=== PATIENT | male | born 1975 | race African-American/Black ===

== ENCOUNTER 2020-11-14 10:32 | Emergency (ER) | payer MEDICAID ==
[~2020-11-14] VITALS: Ht 175.3 cm; Wt 79.8 kg
--- NOTE | 2020-11-14 10:51 | NUR ---
WOKE UP THIS AM W/ HEADACHE, L SIDE CP R/T LOLYE. RAN OUT OF MEDS. TO ER BED 9, HOOKED TO MONITOR, VSS, CHANGED TO HOSP GOWN, WARM BLANKET PROVIDED, PATIENT AAO x 4, NAD NOTED. DR WEST AT BEDSIDE FOR EVAL.
[2020-11-14] MEDS ORDERED: LOSA100T3 PO (10:56)
[2020-11-14] MEDS ORDERED: VERA100C4 PO (10:56)
[2020-11-14] MEDS ORDERED: GABA800T11 PO (10:56)
[2020-11-14] MEDS ORDERED: QUET200T PO (10:56)
[2020-11-14] MEDS ORDERED: DIAZ5TAB PO (10:56)
[2020-11-14 11:05] VITALS: BP 148/99
[2020-11-14] MEDS ORDERED: VERA240T14 PO (11:05)
--- NOTE | 2020-11-14 11:05 | NUR ---
Patient discharged to home in stable condition. Written and verbal after care instructions given. Patient verbalizes understanding of instruction.
== END 2020-11-14 11:05 | disposition home or self-care (01) ==
LOC: ER 10:34
DX: I10 Essential (primary) hypertension (principal); R51.9 Headache, unspecified; F20.9 Schizophrenia, unspecified; F17.200 Nicotine dependence, unspecified, uncomplicated; Z88.8 Allergy status to other drugs, medicaments and biological substances; Z88.5 Allergy status to narcotic agent; Z79.899 Other long term (current) drug therapy

== ENCOUNTER 2020-12-11 21:17 | Emergency (ER) | payer MEDICAID, OTHER ==
[~2020-12-11] VITALS: Ht 175.3 cm; Wt 95.3 kg
[~2020-12-11 21:17] MED LIST: DIAZ5TAB PO; GABA800T11 PO; LOSA100T3 PO; QUET200T PO; VERA100C4 PO; VERA240T14 PO
--- NOTE | 2020-12-11 21:25 | NUR ---
BIBRA FOR C/O ABD PAIN, N/V. ADMITTED ON DRINKKING HEAVY ALCOHOL. PT TO BED 3 ER. REFUSED TO BE HOOKED UP TO VS MACHINE. RISK VS BENEFITS EXPLAINED, WILL CONT TO MONITOR
[2020-12-11] MEDS ORDERED: KETOROLAC TROMETHAMINE INJ 30 MG/ML VIAL IV ONE (21:30)
[2020-12-11] MEDS ORDERED: IV NS 0.9% 1,000 ML BAG IV ONE ×2 (21:30→23:30)
[2020-12-11] MEDS ORDERED: ONDANSETRON HCL/PF 4 MG/2 ML VIAL IVP ONE (21:30)
[2020-12-11] MEDS ORDERED: ONDANSETRON HCL/PF 4 MG/2 ML VIAL ONE (21:31)
[2020-12-11] MEDS ORDERED: KETOROLAC TROMETHAMINE INJ 30 MG/ML VIAL ONE (21:31)
[2020-12-11 21:52] LABS: BASOPHILS # (AUTO) 0.1 /CMM (0.0-0.2); BASOPHILS % (AUTO) 0.6 % (0.0-2.0); EOSINOPHILS % (AUTO) 2.3 % (0.0-6.0); HEMATOCRIT 44 % (39-51); HEMOGLOBIN 15.3 g/dL (13.5-17.5); LYMPHOCYTES # (AUTO) 1.6 /CMM (0.8-4.8); LYMPHOCYTES % (AUTO) 16.3 % (20.0-44.0); MEAN CORPUSCULAR HGB CONC 35 g/dl (31.0-36.0); MEAN CORPUSCULAR VOLUME 82 fL (80-96); MONOCYTES # (AUTO) 1.7 /CMM (0.1-1.30); MONOCYTES % (AUTO) 18.4 % (2.0-12.0); NEUTROPHILS # (AUTO) 5.9 /CMM (1.8-8.9); NEUTROPHILS % (AUTO) 62.4 % (43.0-81.0); PLATELET COUNT (AUTO) 341 /CMM (150-450); RED BLOOD CELL COUNT(AUTO) 5.42 MIL/uL (4.5-6.0); WHITE BLOOD COUNT (AUTO) 9.5 K/uL (4.3-11.0)
--- NOTE | 2020-12-11 22:00 | NUR ---
attempted to start iv line on pt. pt refused at this time. risk and benefits explained x3.
[2020-12-11 22:01] LABS: CALCIUM, SERUM 8.8 mg/dL (8.5-10.1); CREATININE 1.6 mg/dL (0.6-1.3); POTASSIUM 3.8 mmol/L (3.5-5.1)
[2020-12-11 22:06] LABS: ALBUMIN 3.8 g/dL (3.4-5.0); BILIRUBIN,DIRECT 0.3 mg/dL (0.0-0.2); BILIRUBIN,TOTAL 0.7 mg/dL (0.2-1.0)
[2020-12-11 22:32] LABS: BAND % (MANUAL) 2 % (0.0-5.0); EOSINOPHILS % (MANUAL) 3 % (0-4); LYMPHOCYTES % (MANUAL) 17 % (16-48); MONOCYTES % (MANUAL) 18 % (0-11.0); NEUTROPHILS % (MANUAL) 60 (42-76)
[2020-12-11 22:54] LABS: BILIRUBIN,URINE NEGATIVE (NEGATIVE); COLOR,URINE YELLOW (YELLOW); LEUKOCYTE ESTERASE ,URINE NEGATIVE (NEGATIVE); NITRITE, URINE NEGATIVE (NEGATIVE); PROTEIN,URINE 100 mg/dl (NEGATIVE); UGLUCOSE NEGATIVE (NEGATIVE)
[2020-12-11 23:06] LABS: BACTERIA,URINE Few /HPF (None Seen); MUCUS,URINE Many /LPF (None Seen); RBC,URINE 0-2 /HPF (0-2); SQUAMOUS EPITHELIAL CELL,UR Moderate /HPF (None Seen); URINE AMORPHOUS URATE Moderate /HPF (None Seen)
[2020-12-11] MEDS ORDERED: ONDA4TAB5 PO (23:33)
[2020-12-12] MEDS ORDERED: KETOROLAC TROMETHAMINE 15 MG/ML VIAL ONE (00:02)
[2020-12-12] MEDS ORDERED: ONDANSETRON HCL/PF 4 MG/2 ML VIAL ONE (00:02)
[2020-12-12] MEDS ORDERED: ONDANSETRON HCL/PF 4 MG/2 ML VIAL IV ONE (00:30)
[2020-12-12] MEDS ORDERED: KETOROLAC TROMETHAMINE INJ 30 MG/ML VIAL IV ONE (00:30)
--- NOTE | 2020-12-12 01:46 | NUR ---
Patient is resting comfortably in bed with eyes closed. Easily aroused. VSS
--- NOTE | 2020-12-12 02:02 | NUR ---
PT WAS PIACKED UP VIA TAXI IN STABLE CONDITION. PT ALERT, OX 4 AND AMBULATORY WITH STABLE GAITS ON DISCHARGE. IV removed. Catheter intact and site benign. Pressure and 4x4 applied to site. No bleeding noted.Patient discharged to home in stable condition. rx and Written and verbal after care instructions given. Patient verbalizes understanding of instruction.
[2020-12-12 02:04] VITALS: BP 122/66
== END 2020-12-12 02:04 | disposition home or self-care (01) ==
LOC: ER 21:19
DX: K29.20 Alcoholic gastritis without bleeding (principal); F10.10 Alcohol abuse, uncomplicated; N17.9 Acute kidney failure, unspecified; E86.0 Dehydration; I10 Essential (primary) hypertension; F20.0 Paranoid schizophrenia; F17.200 Nicotine dependence, unspecified, uncomplicated; Z88.8 Allergy status to other drugs, medicaments and biological substances; Z79.899 Other long term (current) drug therapy; Y90.9 Presence of alcohol in blood, level not specified
CPT/HCPCS: 36415; 80048; 80076; 81001; 83690; 85007; 85025; 87086; 96361; 96374; 96375; 96376; 99284; J1885 ×2; J2405 ×2; J7030 ×2

== ENCOUNTER 2021-02-02 16:14 | Emergency (ER) | payer OTHER ==
[~2021-02-02] VITALS: Ht 175.3 cm; Wt 83.9 kg
[~2021-02-02 16:14] MED LIST changes: +ONDA4TAB5 PO
--- NOTE | 2021-02-02 16:28 | NUR ---
CHASTITY CULP AT BEDSIDE. PATIENT WANTS TO FILE A POLICE REPORT, WILL CALL NON-EMERGENCY [employer].
[2021-02-02] MEDS ORDERED: ACET-2605 PO (18:02)
[2021-02-02] MEDS ORDERED: ACETAMINOPHEN ES 500 MG TABLET ONE (18:07)
[2021-02-02] MEDS: ACETAMINOPHEN 325 MG TABLET PO ONE (18:10)
[2021-02-02 18:19] VITALS: BP 124/83
--- NOTE | 2021-02-02 18:19 | NUR ---
Patient discharged to home in stable condition. Written and verbal after care instructions given. Patient verbalizes understanding of instruction.
== END 2021-02-02 18:23 | disposition home or self-care (01) ==
LOC: ER 16:18
DX: S09.8XXA Other specified injuries of head, initial encounter (principal); I10 Essential (primary) hypertension; F20.0 Paranoid schizophrenia; F17.200 Nicotine dependence, unspecified, uncomplicated; Z88.8 Allergy status to other drugs, medicaments and biological substances; Z79.899 Other long term (current) drug therapy; Y04.0XXA Assault by unarmed brawl or fight, initial encounter; Y93.89 Activity, other specified; Y92.89 Other specified places as the place of occurrence of the external cause; Y99.8 Other external cause status
CPT/HCPCS: 70450-TC; 72125-TC

== ENCOUNTER 2021-02-17 13:26 | Emergency (ER) | payer OTHER ==
[~2021-02-17] VITALS: Ht 175.3 cm; Wt 81.6 kg
[~2021-02-17 13:26] MED LIST changes: +ACET-2605 PO
[2021-02-17 13:36] VITALS: BP 136/87
--- NOTE | 2021-02-17 13:44 | NUR ---
C/O COUGH X 2 DAYS & ALSO C/O NIGHTSWEATS X 1 MONTH. PT AAOX4, VSS. RR EVEN & UNLABORED. DENIES CP, SOB, DIZZINESS N/V AT THIS TIME. AWAITING EVAL BY WILLIAN. WILL CONT TO MONITOR.
[2021-02-17] MEDS ORDERED: DIAZ5TAB4 PO (15:09)
[2021-02-17] MEDS ORDERED: AMOX-427 PO (15:12)
== END 2021-02-17 15:29 | disposition home or self-care (01) ==
LOC: ER 13:27
DX: J40 Bronchitis, not specified as acute or chronic (principal); I10 Essential (primary) hypertension; F17.200 Nicotine dependence, unspecified, uncomplicated; F20.0 Paranoid schizophrenia; Z88.8 Allergy status to other drugs, medicaments and biological substances; Z59.0 Homelessness; Z79.899 Other long term (current) drug therapy
CPT/HCPCS: 71045-TC

== ENCOUNTER 2021-03-24 15:07 | Emergency (ER) | payer OTHER ==
[~2021-03-24] VITALS: Ht 175.3 cm; Wt 83.9 kg
[~2021-03-24 15:07] MED LIST changes: +AMOX-427 PO; +DIAZ5TAB4 PO
[2021-03-24 15:35] VITALS: BP 180/100
[2021-03-24] MEDS ORDERED: GABA800T11 PO (15:46)
[2021-03-24] MEDS ORDERED: LOSA100T3 PO (15:46)
[2021-03-24] MEDS ORDERED: GUAI120013 PO (15:46)
[2021-03-24] MEDS ORDERED: VERA100C4 PO (15:46)
[2021-03-24] MEDS ORDERED: DIAZ5TAB4 PO (15:46)
== END 2021-03-24 15:58 | disposition home or self-care (01) ==
LOC: ER 15:11
DX: I10 Essential (primary) hypertension (principal); Z76.0 Encounter for issue of repeat prescription; F32.9 Major depressive disorder, single episode, unspecified; F41.9 Anxiety disorder, unspecified; F20.9 Schizophrenia, unspecified; Z88.8 Allergy status to other drugs, medicaments and biological substances; Z60.2 Problems related to living alone; Z79.899 Other long term (current) drug therapy

== ENCOUNTER 2021-09-27 09:06 | Emergency (ER) | payer MEDICAID, OTHER ==
[~2021-09-27] VITALS: Ht 175.3 cm; Wt 79.4 kg
[~2021-09-27 09:06] MED LIST changes: +GUAI120013 PO
--- NOTE | 2021-09-27 09:17 | NUR ---
[place] w/ suicidal ideation w/ plan to jump infront of a train. denies HI. pt is verbally responsive and cooperative. requesting for voluntary psych admission to [facility]. stable vital sign. awaiting md leon.
--- NOTE | 2021-09-27 09:48 | NUR ---
dr uriarte at bedside for eval.
--- NOTE | 2021-09-27 09:48 | NUR ---
dr uriarte at bedside for blood draw.
--- NOTE | 2021-09-27 10:10 | NUR ---
recyclable materials distributor at bedside for blood draw.
--- NOTE | 2021-09-27 10:10 | NUR ---
Beth frost in [facility] - 09/27/21 at 1702 by TOMMY roving tester laboratory at bedside for aliceal.
[2021-09-27 10:35] LABS: BASOPHILS # (AUTO) 0.1 K/uL (0.0-0.2); BASOPHILS % (AUTO) 0.8 % (0.0-2.0); EOSINOPHILS % (AUTO) 0.5 % (0.0-6.0); HEMATOCRIT 44 % (39-51); HEMOGLOBIN 15.2 g/dL (13.5-17.5); LYMPHOCYTES # (AUTO) 2.1 K/uL (0.8-4.8); LYMPHOCYTES % (AUTO) 21.6 % (20.0-44.0); MEAN CORPUSCULAR HGB CONC 35 g/dl (31.0-36.0); MEAN CORPUSCULAR VOLUME 83 fL (80-96); MONOCYTES # (AUTO) 1.3 K/uL (0.1-1.30); MONOCYTES % (AUTO) 13.1 % (2.0-12.0); NEUTROPHILS # (AUTO) 6.3 K/uL (1.8-8.9); PLATELET COUNT (AUTO) 370 K/uL (150-450); RED BLOOD CELL COUNT(AUTO) 5.28 MIL/uL (4.5-6.0); WHITE BLOOD COUNT (AUTO) 9.9 K/uL (4.3-11.0)
[2021-09-27 10:47] LABS: CALCIUM, SERUM 8.9 mg/dL (8.5-10.1); CARBON DIOXIDE 28 mmol/L (21-32); CHLORIDE 101 mmol/L (98-107); CREATININE 0.8 mg/dL (0.6-1.3); GLUCOSE 114 mg/dL (74-106); SODIUM SERUM 137 mmol/L (136-145); UREA NITROGEN, BLOOD 18 mg/dL (7-18)
[2021-09-27 11:01] LABS: ALANINE AMINOTRANSFERASE 70 U/L (12-78); ALBUMIN 3.8 g/dL (3.4-5.0); ALCOHOL, BLOOD < 3 mg/dL (0-0); ALKALINE PHOSPHATASE 101 U/L (46-116); ASPARTATE AMINOTRANSFERASE 65 U/L (15-37); BILIRUBIN,DIRECT 0.4 mg/dL (0.0-0.2); BILIRUBIN,TOTAL 0.9 mg/dL (0.2-1.0)
[2021-09-27 11:05] LABS: ACETAMINOPHEN 0 ug/ml (10-30)
--- NOTE | 2021-09-27 11:15 | NUR ---
swabbed for covid. sent to lab.
[2021-09-27 11:18] LABS: BILIRUBIN,URINE SMALL (NEGATIVE); COLOR,URINE DARK YELLOW (YELLOW); LEUKOCYTE ESTERASE ,URINE NEGATIVE (NEGATIVE); NITRITE, URINE NEGATIVE (NEGATIVE); PROTEIN,URINE TRACE mg/dl (NEGATIVE); UGLUCOSE NEGATIVE (NEGATIVE)
--- NOTE | 2021-09-27 12:06 | NUR ---
SS Consult: SS Consult requested for SI, homelessness & drug abuse. The pt. is a 46-year-old Black male patient who presented to the ED with complaints of SI with plan to "run [place]". Upon SS consult, the pt. is Alert & Oriented x 4 and makes piercing eye contact. The pt. appears well groomed, with clear speech. Pt. has depressed mood and affect. SW provided emotional support and offered voluntary psych Tx and pt. is agreeable. SW explored pt.'s living situation. Per the pt., he has been experiencing homelessness "recently" and has been sleeping in the street. Pt. states he has no support system. SW explored pt.'s drug & ETOH use. Pt. states he will use any drugs he can get his hands on when he needs to cope. SW explored pt.'s mental health Hx. Per the pt. he has been diagnosed with "Borderlines Personality Disorder & Schizophrenia" in the past and prescribed Seroquel, remeron & Ativan but has not taken it lately. Pt. denies current HI. Pt. states he received food stamps, and SSDI. Per pt. he is ambulatory & independent with all his ADL's. Plan: Pt. will referred [facility] [[facility] [place] [address] FAX:[phone]] for voluntary psychiatric treatment. Pt. signed homeless waiver & it was placed in the pt.'s chart. [facility] provided homeless resources to pt. and he accepted them. Year-round shelters: [facility] [place] [address] [place] [address] ; [facility] [place] [address] [place] [address]; [facility] [id number] [facility] [address] Winter Shelters: SPA 2 | [facility] Annalee: Kimmie payne [facility] [place] Address: Confidential (call for location ) Population Served: Coed # of Beds: 57 SPA 4 | [facility] Provider: [facility] Address: [address] [place] [address], [address] # of Beds: 49 Population Served: Coed SPA 6 | [facility] Provider: [facility] Address: [address] [place], [address] # of Beds: 49 Population Served: Coed [facility] Provider: Rigo MADDEN Address: [address] [facility] [address] # of Beds: 20 Population Served: Women JAGJIT Facility Provider: [facility] Last Address: [address] [facility] [address] # of Beds: 30 Population Served: Women SPA 8 | [facility] Provider: Lauren payne Dipti Address: [address] [facility], [facility] [address] # of Beds: 65 Population Served: Coed Hygiene: [facility]: [address] [facility] ; [facility] [address] [facility] ; [facility] [address] [facility] . Food Resources: [place] [facility] at [facility]- [address] [facility]; Meet Each Need with Dignity ([facility]) [address] [facility]; [facility] Food Pantry [address]; [facility] [address] [facility]. Mental Health resources provided: [facility] [address] [place] [address] ; [facility] [address] [facility] [address], [place] [address] ; Malou Gong [facility] [address] [place] [address] ; [facility] [address] [place] [address] Healthcare Clinics: [facility] [address] [facility], [address] [place]. [place] ; [facility] [address] [facility] [address] [place] [address]; [facility] [address] [facility] [place] [address] [phone] Counseling--Outpatient [facility] [address] [facility], [place] [address] (Specializes in in-depth psychotherapy for emotional distress: anxiety, depression, interpersonal conflicts, life transitions, childhood abuse) [facility] [address] [place] [address] (Assist with solving problem marital difficulties, separation & divorce, aging parents, & grief, chronic & terminal illness) [facility] [address] [place] [address] (Deal with loss & grief, anxiety, marital difficulties) Homebound/Mental Health Services [address] [facility], [address] [place] [address] (Provide in-home mental services to people who are incapable of leaving their homes) [facility] Needs of the Elderly Senior Service/Resource Center [address] [facility] [place] [address] [facility] [address] [facility] [place] [address] PSYCHIATRIC OUTPATIENT SERVICES [facility] Partial Hospitalization and Intensive Outpatient Program (Managed Care and [place] Only)[address] [facility] [phone] [facility] Partial Hospitalization and Outpatient Zvkpoas17924 [facility] [address] [place], [place] [phone] [facility] Maud Pip[address] [facility] [address] [place], [place] [phone] [facility] Partial Hospitalization and Outpatient Mamcdtk17523 [facility] [place], [phone] Substance Abuse resources provided included: [facility] Substance Abuse Self-Helpline ([facility]) ; CRI -HELP [address] [facility]. [place] [address] ; [facility] [address] [facility] [address] ; [facility] [address] [facility] [address] ; [facility] [address] [phone] ; [facility] [address] Payam Plasencia [facility] [address] ; [facility] 9[address] [facility], [facility] [id number] ; [facility] Substance Abuse Helpline([facility] ; [facility] Family Counseling ; [facility] [place]; [facility] [place]; [facility] Payam Plasencia; [place] [facility] [place]; [place] Carpio; [facility]'s Maud[employer] [place]; Alcoholics Anonymous -SFV; Kz-Ispk-Tizvxtw ; Marijuana Anonymous -SFV; Narcotics Anonymous www.na.org;
[2021-09-27 12:15] VITALS: BP 152/87
[2021-09-27 15:06] LABS: BACTERIA,URINE FEW /HPF (None Seen); RBC,URINE 0-2 /HPF (0-2); WBC,URINE 0-3 /HPF (0-3)
[2021-09-27 15:07] LABS: URINE AMORPHOUS URATE Few /HPF (None Seen)
--- NOTE | 2021-09-27 18:26 | NUR ---
RECEIVED A CALL FROM ANSLEY ESTEVEZ. PT ACCEPTED AT [facility] UNDER THE CARE OF DR. ESTRADA. [phone] ASK FOR UNIT 1.
--- NOTE | 2021-09-27 19:15 | NUR ---
[facility] condition.
== END 2021-09-27 19:17 ==
LOC: ER 09:16
DX: R45.851 Suicidal ideations (principal); F32.9 Major depressive disorder, single episode, unspecified; F14.10 Cocaine abuse, uncomplicated; F12.10 Cannabis abuse, uncomplicated; Z20.822 Contact with and (suspected) exposure to COVID-19; I10 Essential (primary) hypertension; I48.91 Unspecified atrial fibrillation; F41.9 Anxiety disorder, unspecified; F20.9 Schizophrenia, unspecified; Z88.8 Allergy status to other drugs, medicaments and biological substances; Z60.2 Problems related to living alone; Z79.899 Other long term (current) drug therapy
CPT/HCPCS: 36415; 80048-TC; 80076-TC; 81001; 85025-TC; C9803; G0480

== ENCOUNTER 2022-02-22 11:03 | Emergency (ER) | payer MEDICAID ==
[~2022-02-22] VITALS: Ht 175.3 cm; Wt 68.0 kg
--- NOTE | 2022-02-22 12:03 | NUR ---
SECURITY IS CALLED AND WANDING DONE.
--- NOTE | 2022-02-22 12:13 | NUR ---
BIBS FOR FOR HAVING SI WITH PLAN " TO OVERDOSE ON ANY PILL". THE PATIENT REQUESTING VOL ADMISSION TO [facility]. THE PATIENT IS ALERT AND ORIENTED X4. IN ROOM AIR AND DENIES SOB. RESPIRATION REGULAR AND UNLABORED. WILL CONTINUE TO MONITOR THE PATIENT.
[2022-02-22 12:50] LABS: BASOPHILS # (AUTO) 0.1 K/uL (0.0-0.2); EOSINOPHILS % (AUTO) 1.9 % (0.0-6.0); HEMATOCRIT 45 % (39-51); HEMOGLOBIN 15.7 g/dL (13.5-17.5); LYMPHOCYTES # (AUTO) 2.2 K/uL (0.8-4.8); LYMPHOCYTES % (AUTO) 33.5 % (20.0-44.0); MEAN CORPUSCULAR HGB CONC 35 g/dl (31.0-36.0); MEAN CORPUSCULAR VOLUME 82 fL (80-96); MONOCYTES # (AUTO) 0.9 K/uL (0.1-1.30); MONOCYTES % (AUTO) 14.3 % (2.0-12.0); NEUTROPHILS # (AUTO) 3.3 K/uL (1.8-8.9); NEUTROPHILS % (AUTO) 49.3 % (43.0-81.0); PLATELET COUNT (AUTO) 348 K/uL (150-450); RED BLOOD CELL COUNT(AUTO) 5.47 MIL/uL (4.5-6.0); WHITE BLOOD COUNT (AUTO) 6.6 K/uL (4.3-11.0)
[2022-02-22 12:57] LABS: BILIRUBIN,URINE NEGATIVE (NEGATIVE); COLOR,URINE YELLOW (YELLOW); LEUKOCYTE ESTERASE ,URINE NEGATIVE (NEGATIVE); NITRITE, URINE NEGATIVE (NEGATIVE); PROTEIN,URINE TRACE mg/dl (NEGATIVE); UGLUCOSE NEGATIVE (NEGATIVE)
[2022-02-22 13:03] LABS: CALCIUM, SERUM 9.3 mg/dL (8.5-10.1); CREATININE 0.7 mg/dL (0.6-1.3); POTASSIUM 3.8 mmol/L (3.5-5.1)
[2022-02-22 13:05] LABS: ALBUMIN 4.1 g/dL (3.4-5.0); BILIRUBIN,DIRECT 0.3 mg/dL (0.0-0.2); BILIRUBIN,TOTAL 0.9 mg/dL (0.2-1.0); TOTAL PROTEIN, SERUM 8.5 g/dL (6.4-8.2)
[2022-02-22 13:16] LABS: BACTERIA,URINE Rare /HPF (None Seen); MUCUS,URINE Few /LPF (None Seen); RBC,URINE 0-2 /HPF (0-2); SQUAMOUS EPITHELIAL CELL,UR Few /HPF (None Seen)
--- NOTE | 2022-02-22 16:32 | NUR ---
CLINICALS FAXED TO [facility].
--- NOTE | 2022-02-22 18:01 | NUR ---
TRANSFER INFO: ACCEPTED TO [facility] BY DR HERNÁNDEZ RN FOR REPORT [phone]
--- NOTE | 2022-02-22 18:05 | NUR ---
[facility] ETA 45 MINUTES
[2022-02-22] MEDS ORDERED: LORAZEPAM 1 MG TABLET ONE (18:09)
[2022-02-22] MEDS ORDERED: LORAZEPAM 1 MG TABLET PO ONE (18:30)
--- NOTE | 2022-02-22 18:33 | NUR ---
PER THE [facility] CHARGE NURSE CALL BACK LATER FOR REPORT. WILL FOLLOW UP.
--- NOTE | 2022-02-22 19:01 | NUR ---
REPORT GIVEN TO NURSE LOMAS FROM [facility]
--- NOTE | 2022-02-22 19:02 | NUR ---
REPORT GIVEN TO AMBULANCE STAFF
--- NOTE | 2022-02-22 19:19 | NUR ---
DR ESPANA MADE AWARE OF BP 160/112, RECEIVED ORDER OF COZAAR 100 MG PO ONCE AND VERAPAMIL 240 MG PO ONCE. THE ORDERS ARE READ BACK, VERIFIED. NOTED AND CARRIED OUT.
[2022-02-22] MEDS ORDERED: LOSARTAN POTASSIUM 50 MG TABLET ONE (19:20)
[2022-02-22] MEDS ORDERED: VERAPAMIL HCL 80 MG TABLET ONE (19:20)
[2022-02-22] MEDS ORDERED: LOSARTAN POTASSIUM 25 MG TABLET PO ONE (19:30)
[2022-02-22] MEDS ORDERED: VERAPAMIL HCL 80 MG TABLET PO ONE (19:30)
[2022-02-22] MEDS ORDERED: CLONIDINE HCL 0.1 MG TABLET ONE (22:27)
[2022-02-22] MEDS ORDERED: CLONIDINE HCL 0.1 MG TABLET PO ONE (22:30)
--- NOTE | 2022-02-22 23:36 | NUR ---
[facility] CALLED FOR BLS TO [facility] PER DAVE-15-20 MIN
--- NOTE | 2022-02-23 00:08 | NUR ---
REPORT GIVEN TO [facility] FOR TRANSPORT
[2022-02-23 00:42] VITALS: BP 148/98
== END 2022-02-23 00:43 ==
LOC: ER 11:45
DX: R45.851 Suicidal ideations (principal); I10 Essential (primary) hypertension; F20.0 Paranoid schizophrenia; Z88.8 Allergy status to other drugs, medicaments and biological substances; Z20.822 Contact with and (suspected) exposure to COVID-19
CPT/HCPCS: 36415; 80048; 80076; 80143; 80307; 80320; 81001; 85025; 87426; 99285; C9803; G0480

== ENCOUNTER 2022-09-06 02:57 | Emergency (ER) | payer MEDICAID, OTHER ==
[~2022-09-06] VITALS: Ht 175.3 cm; Wt 86.2 kg
[2022-09-06] MEDS ORDERED: hydrALAZINE HCL IV 20 MG VIAL ONE (03:36)
--- NOTE | 2022-09-06 03:38 | NUR ---
[employer] FOR MEDICAL CLEARANCE FOR BOOKING. REPORTTED HIGH BP IN THE 180S SYSTOLIC. PT AWAKE AND ALERT X4 BREATHING UNLABORED PLACED ON MONITOR AND NOTED HYPERTENSIVE. DENIES ANY PAIN/SOB.
--- NOTE | 2022-09-06 03:48 | NUR ---
20g iv line started at . blood drawn and sent to lab
[2022-09-06] MEDS ORDERED: hydrALAZINE HCL IV 20 MG VIAL IV ONE (04:00)
[2022-09-06 04:02] LABS: BASOPHILS % (AUTO) 0.7 % (0.0-2.0); EOSINOPHILS % (AUTO) 4.9 % (0.0-6.0); HEMATOCRIT 45 % (39-51); HEMOGLOBIN 15.7 g/dL (13.5-17.5); LYMPHOCYTES # (AUTO) 2.2 K/uL (0.8-4.8); MEAN CORPUSCULAR HGB CONC 35 g/dl (31.0-36.0); MEAN CORPUSCULAR VOLUME 82 fL (80-96); MONOCYTES # (AUTO) 0.9 K/uL (0.1-1.30); MONOCYTES % (AUTO) 13.4 % (2.0-12.0); NEUTROPHILS # (AUTO) 3.3 K/uL (1.8-8.9); PLATELET COUNT (AUTO) 284 K/uL (150-450); RED BLOOD CELL COUNT(AUTO) 5.51 MIL/uL (4.5-6.0); WHITE BLOOD COUNT (AUTO) 6.8 K/uL (4.3-11.0)
[2022-09-06 04:15] LABS: ALANINE AMINOTRANSFERASE 61 U/L (12-78); ALBUMIN 3.4 g/dL (3.4-5.0); ALKALINE PHOSPHATASE 111 U/L (46-116); ASPARTATE AMINOTRANSFERASE 52 U/L (15-37); BILIRUBIN,DIRECT 0.3 mg/dL (0.0-0.2); BILIRUBIN,TOTAL 0.7 mg/dL (0.2-1.0); CALCIUM, SERUM 9.4 mg/dL (8.5-10.1); CARBON DIOXIDE 31 mmol/L (21-32); CHLORIDE 99 mmol/L (98-107); GLUCOSE 121 mg/dL (74-106); POTASSIUM 3.7 mmol/L (3.5-5.1); SODIUM SERUM 135 mmol/L (136-145); TOTAL PROTEIN, SERUM 7.3 g/dL (6.4-8.2); UREA NITROGEN, BLOOD 17 mg/dL (7-18)
--- NOTE | 2022-09-06 04:23 | NUR ---
urine sent to lab
[2022-09-06 04:29] LABS: BILIRUBIN,URINE NEGATIVE (NEGATIVE); COLOR,URINE YELLOW (YELLOW); LEUKOCYTE ESTERASE ,URINE NEGATIVE (NEGATIVE); NITRITE, URINE NEGATIVE (NEGATIVE); PROTEIN,URINE TRACE mg/dl (NEGATIVE); UGLUCOSE NEGATIVE (NEGATIVE)
[2022-09-06 04:50] LABS: BACTERIA,URINE Rare /HPF (None Seen); RBC,URINE NONE SEEN /HPF (0-2); SQUAMOUS EPITHELIAL CELL,UR Few /HPF (None Seen); WBC,URINE 0-2 /HPF (0-3)
--- NOTE | 2022-09-06 09:16 | NUR ---
IV removed. Catheter intact and site benign. Pressure and 4x4 applied to site. No bleeding noted.
--- NOTE | 2022-09-06 09:21 | NUR ---
PT MEDICALLY-CLEARED FOR BOOKING. DISCHARGED TO [facility] IN STABLE CONDITION, ACCOMPANIED BY 2 Charito. DISCHARGE PAPERS PROVIDED.
[2022-09-06 09:22] VITALS: BP 142/80
== END 2022-09-06 09:23 ==
LOC: ER 03:00
DX: I16.0 Hypertensive urgency (principal); I10 Essential (primary) hypertension; I48.91 Unspecified atrial fibrillation; F20.9 Schizophrenia, unspecified; F17.200 Nicotine dependence, unspecified, uncomplicated; Z88.8 Allergy status to other drugs, medicaments and biological substances; Z60.2 Problems related to living alone; Z79.899 Other long term (current) drug therapy
CPT/HCPCS: 99285; 96374; 93005; 85025; 80048; 80076; 81001; 36415; 84484 ×2; 85730; J0360

== ENCOUNTER 2023-09-28 16:08 | Emergency (ER) | payer MEDICAID, OTHER ==
[~2023-09-28] VITALS: Ht 188 cm; Wt 93.9 kg
[2023-09-28 16:17] VITALS: TEMP 98
[2023-09-28] MEDS: IV NS 0.9% 1,000 ML BAG IV ONE (16:27)
[2023-09-28] MEDS ORDERED: MORPHINE SULFATE INJ 4 MG/ML DISP.SYRIN ONE (16:29)
[2023-09-28] MEDS: MORPHINE SULFATE INJ 2 MG/ML DISP.SYRIN IV ONE (16:31)
[2023-09-28 16:41] LABS: BASOPHILS # (AUTO) 0.1 K/uL (0.0-0.2); BASOPHILS % (AUTO) 0.8 % (0.0-2.0); EOSINOPHILS # (AUTO) 0.2 K/uL (0.0-0.7); EOSINOPHILS % (AUTO) 2.1 % (0.0-6.0); HEMATOCRIT 38 % (39-51); HEMOGLOBIN 13.5 g/dL (13.5-17.5); LYMPHOCYTES # (AUTO) 2.2 K/uL (0.8-4.8); MEAN CORPUSCULAR HEMOGLOBIN 28 PG (26.0-33.0); MEAN CORPUSCULAR HGB CONC 36 g/dl (31.0-36.0); MEAN CORPUSCULAR VOLUME 78 fL (80-96); MONOCYTES # (AUTO) 1.2 K/uL (0.1-1.30); MONOCYTES % (AUTO) 11.3 % (2.0-12.0); NEUTROPHILS # (AUTO) 6.9 K/uL (1.8-8.9); NEUTROPHILS % (AUTO) 64.8 % (43.0-81.0); PLATELET COUNT (AUTO) 291 K/uL (150-450); RED BLOOD CELL COUNT(AUTO) 4.89 MIL/uL (4.5-6.0); RED CELL DISTRIBUTION WIDTH 14.4 % (11.5-15.0); WHITE BLOOD COUNT (AUTO) 10.7 K/uL (4.3-11.0)
[2023-09-28 17:20] LABS: CALCIUM, SERUM 8.2 mg/dL (8.5-10.1); CARBON DIOXIDE 26 mmol/L (21-32); CHLORIDE 102 mmol/L (98-107); CREATININE 0.9 mg/dL (0.6-1.3); GLUCOSE 142 mg/dL (74-106); NT-PRO BNP 47 pg/mL (0-125); POTASSIUM 3.6 mmol/L (3.5-5.1); SODIUM SERUM 138 mmol/L (136-145); UREA NITROGEN, BLOOD 12 mg/dL (7-18)
[2023-09-28 18:17] LABS: AMPHETAMINE, URINE NEGATIVE (NEGATIVE); BARBITURATE, URINE NEGATIVE (NEGATIVE); BENZODIAZEPINE, URINE NEGATIVE (NEGATIVE); CANNABINOID, URINE NEGATIVE (NEGATIVE); PHENCYCLIDINE SCREEN,URINE NEGATIVE (NEGATIVE)
[2023-09-28 18:26] LABS: COCCAINE, URINE POSITIVE (NEGATIVE); OPIATE, URINE POSITIVE (NEGATIVE)
[2023-09-28 20:44] LABS: ACETAMINOPHEN <10 ug/ml (10-30); SALICYLATE 0.3 mg/dL (2.8-20.0)
[2023-09-28] MEDS ORDERED: ONDANSETRON 4 MG TAB.RAPDIS ONE (21:06)
[2023-09-28] MEDS: ONDANSETRON 4 MG TAB.RAPDIS SL ONE (21:07)
[2023-09-29 00:42] LABS: APPEARANCE,URINE CLEAR (CLEAR); BILIRUBIN,URINE NEGATIVE (NEGATIVE); BLOOD, URINE NEGATIVE Ery/uL (NEGATIVE); COLOR,URINE YELLOW (YELLOW); KETONES,URINE 2+ mg/dL (NEGATIVE); LEUKOCYTE ESTERASE ,URINE NEGATIVE (NEGATIVE); NITRITE, URINE NEGATIVE (NEGATIVE); PROTEIN,URINE 1+ mg/dl (NEGATIVE); UGLUCOSE TRACE mg/dL (NEGATIVE)
[2023-09-29 00:49] LABS: ADD URINE CULTURE NO; BACTERIA,URINE Rare /HPF (None Seen); RBC,URINE 0-2 /HPF (0-2); SQUAMOUS EPITHELIAL CELL,UR Few /HPF (None Seen); WBC,URINE 0-2 /HPF (0-3)
[2023-09-29] MEDS ORDERED: LORAZEPAM 1 MG TABLET ONE (04:30)
[2023-09-29] MEDS: LORAZEPAM 1 MG TABLET PO ONE (04:40)
[2023-09-29 12:08] VITALS: BP 139/88; O2SAT 96
== END 2023-09-29 12:09 ==
LOC: ER 16:19
DX: R07.89 Other chest pain (principal); F19.10 Other psychoactive substance abuse, uncomplicated; I10 Essential (primary) hypertension; I48.91 Unspecified atrial fibrillation; F20.0 Paranoid schizophrenia; Z88.8 Allergy status to other drugs, medicaments and biological substances; Z60.2 Problems related to living alone; Z79.899 Other long term (current) drug therapy; Z20.822 Contact with and (suspected) exposure to COVID-19
CPT/HCPCS: 99285; 96374; 96361; 93005; 71045; 85025; 80048; 85378; 36415; 84484 ×2; 83880; 87426; 80143; 80320; 80307; 81001; J2270; J7030; Q0162; G0480

== ENCOUNTER 2023-10-08 19:10 | Emergency (ER) | payer MEDICAID ==
[~2023-10-08] VITALS: Ht 188 cm; Wt 93.9 kg
[2023-10-08 21:58] VITALS: TEMP 98
[2023-10-08 22:20] LABS: BASOPHILS % (AUTO) 0.4 % (0.0-2.0); EOSINOPHILS # (AUTO) 0.3 K/uL (0.0-0.7); EOSINOPHILS % (AUTO) 3.1 % (0.0-6.0); HEMATOCRIT 37 % (39-51); HEMOGLOBIN 12.7 g/dL (13.5-17.5); LYMPHOCYTES # (AUTO) 2.2 K/uL (0.8-4.8); LYMPHOCYTES % (AUTO) 21.5 % (20.0-44.0); MEAN CORPUSCULAR HEMOGLOBIN 27 PG (26.0-33.0); MEAN CORPUSCULAR HGB CONC 35 g/dl (31.0-36.0); MEAN CORPUSCULAR VOLUME 78 fL (80-96); MONOCYTES # (AUTO) 1.2 K/uL (0.1-1.30); MONOCYTES % (AUTO) 12.3 % (2.0-12.0); NEUTROPHILS # (AUTO) 6.3 K/uL (1.8-8.9); NEUTROPHILS % (AUTO) 62.7 % (43.0-81.0); PLATELET COUNT (AUTO) 326 K/uL (150-450); RED BLOOD CELL COUNT(AUTO) 4.69 MIL/uL (4.5-6.0); RED CELL DISTRIBUTION WIDTH 14.6 % (11.5-15.0); WHITE BLOOD COUNT (AUTO) 10.1 K/uL (4.3-11.0)
[2023-10-08] MEDS: VERAPAMIL SR 120 MG TABLET.SA PO ONE (22:30)
[2023-10-08 22:31] LABS: APPEARANCE,URINE CLEAR (CLEAR); BILIRUBIN,URINE NEGATIVE (NEGATIVE); BLOOD, URINE TRACE-INTA Ery/uL (NEGATIVE); COLOR,URINE YELLOW (YELLOW); KETONES,URINE NEGATIVE (NEGATIVE); LEUKOCYTE ESTERASE ,URINE NEGATIVE (NEGATIVE); NITRITE, URINE NEGATIVE (NEGATIVE); PH,URINE 7.5 (5.0-8.0); PROTEIN,URINE NEGATIVE (NEGATIVE); UGLUCOSE NEGATIVE (NEGATIVE)
[2023-10-08 22:42] LABS: ALANINE AMINOTRANSFERASE 41 U/L (12-78); ALBUMIN 3.2 g/dL (3.4-5.0); ALCOHOL, BLOOD < 3 mg/dL (0-10); ALKALINE PHOSPHATASE 123 U/L (46-116); ASPARTATE AMINOTRANSFERASE 29 U/L (15-37); BILIRUBIN,DIRECT 0.1 mg/dL (0.0-0.2); BILIRUBIN,TOTAL 0.4 mg/dL (0.2-1.0); CALCIUM, SERUM 8.7 mg/dL (8.5-10.1); CARBON DIOXIDE 28 mmol/L (21-32); CHLORIDE 102 mmol/L (98-107); CREATININE 0.9 mg/dL (0.6-1.3); GLUCOSE 116 mg/dL (74-106); POTASSIUM 3.9 mmol/L (3.5-5.1); SODIUM SERUM 137 mmol/L (136-145); TOTAL PROTEIN, SERUM 7.3 g/dL (6.4-8.2); UREA NITROGEN, BLOOD 16 mg/dL (7-18)
[2023-10-08 22:44] LABS: AMPHETAMINE, URINE NEGATIVE (NEGATIVE); BARBITURATE, URINE NEGATIVE (NEGATIVE); BENZODIAZEPINE, URINE NEGATIVE (NEGATIVE); CANNABINOID, URINE NEGATIVE (NEGATIVE); COCCAINE, URINE NEGATIVE (NEGATIVE); OPIATE, URINE NEGATIVE (NEGATIVE); PHENCYCLIDINE SCREEN,URINE NEGATIVE (NEGATIVE)
[2023-10-08 22:46] LABS: ADD URINE CULTURE NO; BACTERIA,URINE None seen /HPF (None Seen); SQUAMOUS EPITHELIAL CELL,UR Rare /HPF (None Seen); WBC,URINE 0-2 /HPF (0-3)
[2023-10-08] MEDS ORDERED: CLONIDINE HCL 0.1 MG TABLET ONE (23:06)
[2023-10-08 23:10] LABS: SALICYLATE 0.9 mg/dL (2.8-20.0)
[2023-10-08 23:11] LABS: ACETAMINOPHEN <10 ug/ml (10-30)
[2023-10-08] MEDS: CLONIDINE HCL 0.1 MG TABLET PO ONE (23:23)
[2023-10-08 23:24] VITALS: O2SAT 98
[2023-10-08] MEDS: VERAPAMIL HCL 80 MG TABLET ONE (23:24)
[2023-10-08 23:31] VITALS: BP 166/113
[2023-10-08] MEDS: VERAPAMIL HCL 80 MG TABLET PO ONE (23:31)
[2023-10-09] MEDS ORDERED: LORAZEPAM 1 MG TABLET ONE (03:10)
[2023-10-09] MEDS: LORAZEPAM 1 MG TABLET PO ONE (03:10)
== END 2023-10-09 03:30 ==
LOC: ER 19:13
DX: R45.851 Suicidal ideations (principal); R07.9 Chest pain, unspecified; I10 Essential (primary) hypertension; I48.91 Unspecified atrial fibrillation; F20.0 Paranoid schizophrenia; Z88.8 Allergy status to other drugs, medicaments and biological substances; Z60.2 Problems related to living alone; Z79.899 Other long term (current) drug therapy; Z20.822 Contact with and (suspected) exposure to COVID-19
CPT/HCPCS: 36415; 71045-TC; 80048-TC; 80076-TC; 81001; 84484-TC; 85025-TC; G0480